=== PATIENT | male | born 1965 | race Caucasian/White ===

== ENCOUNTER 2017-10-28 16:58 | Emergency (ER) | payer OTHER ==
[~2017-10-28] VITALS: Ht 185.4 cm; Wt 187.8 kg
[2017-10-28 17:00] VITALS: BP 159/110
[2017-10-28] MEDS ORDERED: AMLO5TAB2 PO (17:18)
[2017-10-28] MEDS ORDERED: LISI40TA PO (17:18)
[2017-10-28] MEDS ORDERED: BUPR200T2 PO (17:18)
[2017-10-28] MEDS ORDERED: LEVO200T5 PO (17:18)
[2017-10-28] MEDS ORDERED: KETOROLAC 30 MG/1 ML ONE (17:28)
[2017-10-28] MEDS ORDERED: KETOROLAC 30 MG/1 ML IM ONE (17:30)
== END 2017-10-28 18:03 | disposition home or self-care (01) ==
LOC: ED 17:42
DX: M10.072 Idiopathic gout, left ankle and foot (principal); M13.172 Monoarthritis, not elsewhere classified, left ankle and foot; I10 Essential (primary) hypertension; E03.9 Hypothyroidism, unspecified; Z85.850 Personal history of malignant neoplasm of thyroid
CPT/HCPCS: 73610; 96372; 99284; J1885

== ENCOUNTER 2017-12-21 12:41 | Emergency (ER) | payer OTHER ==
[~2017-12-21] VITALS: Ht 185.4 cm; Wt 179.0 kg
[~2017-12-21 12:41] MED LIST: AMLO5TAB2 PO; BUPR200T2 PO; LEVO200T5 PO; LISI40TA PO
[2017-12-21 12:53] VITALS: BP 134/90
[2017-12-21] MEDS ORDERED: KETOROLAC 30 MG/1 ML IM ONE (14:00)
[2017-12-21] MEDS ORDERED: KETOROLAC 30 MG/1 ML ONE (14:13)
== END 2017-12-21 15:22 | disposition home or self-care (01) ==
LOC: ED 15:14
DX: M13.172 Monoarthritis, not elsewhere classified, left ankle and foot (principal); M10.9 Gout, unspecified; R26.2 Difficulty in walking, not elsewhere classified; I10 Essential (primary) hypertension; E03.9 Hypothyroidism, unspecified; G62.9 Polyneuropathy, unspecified; Z85.850 Personal history of malignant neoplasm of thyroid
CPT/HCPCS: 96372; 99283; J1885

== ENCOUNTER 2018-11-27 15:19 | Emergency (ER) | payer MEDICAID, OTHER ==
[~2018-11-27] VITALS: Ht 185.4 cm; Wt 172.0 kg
[~2018-11-27 15:19] MED LIST changes: +AMLO-150 PO; -AMLO5TAB2 PO
[2018-11-27 15:28] VITALS: BP 129/93
[2018-11-27 15:55] LABS: BASOPHILS # (AUTO) 0.02 x10^3/uL (0-0.1); BASOPHILS % (AUTO) 0 % (0-1); EOSINOPHILS # (AUTO) 0.11 x10^3/uL (0-0.4); EOSINOPHILS % (AUTO) 2 % (1-7); LYMPHOCYTES # (AUTO) 1.37 x10^3/uL (1-3.4); LYMPHOCYTES % (AUTO) 19 % (22-44); MD NO; MEAN CORPUSCULAR HEMOGLOBIN 35.7 pg (27.5-34.5); MEAN CORPUSCULAR HGB CONC 33.5 g/dL (33.2-36.2); MEAN CORPUSCULAR VOLUME 106.5 fL (81-97); MEAN PLATELET VOLUME 7.2 fL (7.4-10.4); MONOCYTES # (AUTO) 0.32 x10^3/uL (0.2-0.8); MONOCYTES % (AUTO) 5 % (2-9); NEUTROPHILS # (AUTO) 5.26 x10^3/uL (1.8-6.8); NEUTROPHILS % (AUTO) 74 % (42-75); PLATELET COUNT 166 x10^3/uL (130-400); RED BLOOD COUNT 4.58 x10^6/uL (4.38-5.82); RED CELL DISTRIBUTION WIDTH 13.9 % (9.4-14.8)
[2018-11-27 16:05] LABS: ALBUMIN 4.2 g/dL (3.4-5.0); ANION GAP 6 mmol/L (5-15); CALCIUM 8.8 mg/dL (8.5-10.1); CHLORIDE 110 mmol/L (98-107)
[2018-11-27 16:11] LABS: ALANINE AMINOTRANSFERASE 38 U/L (12-78); ALKALINE PHOSPHATASE 91 U/L (45-117); BILIRUBIN,TOTAL 4.4 mg/dL (0.2-1.0); CREATININE 1.09 mg/dL (0.7-1.3); TOTAL PROTEIN 8.1 g/dL (6.4-8.2)
--- NOTE | 2018-11-27 16:39 | NUR ---
FROM LOBBY TO ROOM AT THIS TIME
--- NOTE | 2018-11-27 16:54 | NUR ---
THIS IS A 53 Y/O MALE THAT ARRIVES FROM HOME WITH GI DISTRESS. PT REPORTS N/V/D SINCE TRAVEL TO [place]. PT REPORTS THAT HE CANNOT STAY HYDRATED AT THIS TIME. PT ALSO REPROTS HE HAS NOT SEEKED TREATMENT SINCE HE GOT INSURANCE TODAY. PT IS TENDER TO ABD PALPATION. PT DEINES TRUAMA AT THIS TIME. PT CONNECTED TO MONITORS AND CALL LIGHT IN REACH. AWATING FURTHER ORDERS. VSS
--- NOTE | 2018-11-27 17:09 | NUR ---
EKG COMPLETED, UA SENT TO LAB
[2018-11-27 17:17] LABS: MICROSCOPIC NOT IND
[2018-11-27 17:21] LABS: CULTURE INDICATED? NO
--- NOTE | 2018-11-27 17:43 | NUR ---
Patient/Caregiver given discharge instructions and they have confirmed that they understand the instructions. Patient ambulatory with steady gait.
== END 2018-11-27 18:20 | disposition home or self-care (01) ==
LOC: ED 18:00
DX: K43.9 Ventral hernia without obstruction or gangrene (principal); E80.7 Disorder of bilirubin metabolism, unspecified; F32.9 Major depressive disorder, single episode, unspecified; E03.9 Hypothyroidism, unspecified; I10 Essential (primary) hypertension; M19.90 Unspecified osteoarthritis, unspecified site; G89.29 Other chronic pain
CPT/HCPCS: 36415; 71046; 80053; 81003; 83690; 83880; 84443; 85025; 93005; 99284

== ENCOUNTER 2018-12-27 04:15 | Emergency (ER) | payer MEDICAID ==
[~2018-12-27] VITALS: Ht 185.4 cm; Wt 166.0 kg
[2018-12-27 04:19] VITALS: BP 153/95
--- NOTE | 2018-12-27 04:30 | NUR ---
PT AMBULATES FROM TRIAGE TO ROOM WITH STEADY GAIT.
[2018-12-27] MEDS ORDERED: KETOROLAC 30 MG/1 ML IM ONE (05:00)
[2018-12-27] MEDS ORDERED: KETOROLAC 60 MG/2 ML ONE (05:05)
--- NOTE | 2018-12-27 05:09 | NUR ---
PT MEDICATED PER MAR.
[2018-12-27 05:44] LABS: BASOPHILS # (AUTO) 0.04 x10^3/uL (0-0.1); BASOPHILS % (AUTO) 1 % (0-1); EOSINOPHILS # (AUTO) 0.17 x10^3/uL (0-0.4); EOSINOPHILS % (AUTO) 2 % (1-7); LYMPHOCYTES # (AUTO) 1.31 x10^3/uL (1-3.4); LYMPHOCYTES % (AUTO) 18 % (22-44); MD NO; MEAN CORPUSCULAR HEMOGLOBIN 36.7 pg (27.5-34.5); MEAN CORPUSCULAR HGB CONC 34.9 g/dL (33.2-36.2); MEAN CORPUSCULAR VOLUME 105.2 fL (81-97); MEAN PLATELET VOLUME 7.4 fL (7.4-10.4); MONOCYTES # (AUTO) 0.52 x10^3/uL (0.2-0.8); MONOCYTES % (AUTO) 7 % (2-9); NEUTROPHILS # (AUTO) 5.22 x10^3/uL (1.8-6.8); NEUTROPHILS % (AUTO) 72 % (42-75); PLATELET COUNT 135 x10^3/uL (130-400); RED BLOOD COUNT 4.17 x10^6/uL (4.38-5.82); RED CELL DISTRIBUTION WIDTH 13.6 % (9.4-14.8)
[2018-12-27 05:47] LABS: ALBUMIN 3.8 g/dL (3.4-5.0); ANION GAP 8 mmol/L (5-15); CALCIUM 8.8 mg/dL (8.5-10.1); CHLORIDE 109 mmol/L (98-107); CREATININE 1.08 mg/dL (0.7-1.3)
[2018-12-27] MEDS ORDERED: OXYcodone/APAP 5/325MG TABLET PO ONE (06:00)
[2018-12-27] MEDS ORDERED: OXYcodone/APAP 5/325MG TABLET ONE (06:12)
--- NOTE | 2018-12-27 06:15 | NUR ---
PT MEDICATED PER AUG. PT PROVIDED CRUTCHES AND ABLE TO DEMONSTRATE PROPER USE PRIOR TO D/C. PT CRUTCHES ADJUSTED FOR PT HEIGHT.
== END 2018-12-27 06:40 | disposition home or self-care (01) ==
LOC: ED 05:40
DX: M10.071 Idiopathic gout, right ankle and foot (principal); M19.90 Unspecified osteoarthritis, unspecified site; F32.9 Major depressive disorder, single episode, unspecified; I10 Essential (primary) hypertension; E03.9 Hypothyroidism, unspecified; Z85.850 Personal history of malignant neoplasm of thyroid
CPT/HCPCS: 36415; 73610; 80048; 82040; 84550; 85025; 96372; 99284; J1885

== ENCOUNTER 2019-02-04 13:24 | Emergency (ER) | payer MEDICAID ==
[~2019-02-04] VITALS: Ht 185.4 cm; Wt 172.0 kg
[2019-02-04 13:30] VITALS: BP 140/83
== END 2019-02-04 13:59 | disposition home or self-care (01) ==
LOC: ED 13:30
DX: M10.071 Idiopathic gout, right ankle and foot (principal); Z76.0 Encounter for issue of repeat prescription; E03.9 Hypothyroidism, unspecified; I10 Essential (primary) hypertension; Z85.850 Personal history of malignant neoplasm of thyroid
CPT/HCPCS: 99283

== ENCOUNTER 2019-05-21 20:49 | Emergency (ER) | payer MEDICAID ==
[~2019-05-21] VITALS: Ht 185.4 cm; Wt 179.5 kg
[2019-05-21 21:50] LABS: BASOPHILS # (AUTO) 0.03 x10^3/uL (0-0.1); BASOPHILS % (AUTO) 0 % (0-1); EOSINOPHILS # (AUTO) 0.15 x10^3/uL (0-0.4); EOSINOPHILS % (AUTO) 2 % (1-7); LYMPHOCYTES # (AUTO) 1.77 x10^3/uL (1-3.4); LYMPHOCYTES % (AUTO) 23 % (22-44); MD NO; MEAN CORPUSCULAR HGB CONC 33.9 g/dL (33.2-36.2); MEAN CORPUSCULAR VOLUME 106.2 fL (81-97); MEAN PLATELET VOLUME 7.1 fL (7.4-10.4); MONOCYTES # (AUTO) 0.43 x10^3/uL (0.2-0.8); MONOCYTES % (AUTO) 6 % (2-9); NEUTROPHILS # (AUTO) 5.44 x10^3/uL (1.8-6.8); NEUTROPHILS % (AUTO) 70 % (42-75); PLATELET COUNT 156 x10^3/uL (130-400); RED CELL DISTRIBUTION WIDTH 14.9 % (9.4-14.8)
[2019-05-21 22:02] LABS: ALANINE AMINOTRANSFERASE 38 U/L (12-78); ANION GAP 6 mmol/L (5-15); CALCIUM 8.7 mg/dL (8.5-10.1); CHLORIDE 107 mmol/L (98-107); CREATININE 1.18 mg/dL (0.7-1.3)
[2019-05-21 22:04] LABS: ALKALINE PHOSPHATASE 97 U/L (45-117); BILIRUBIN,TOTAL 2.8 mg/dL (0.2-1.0); TOTAL PROTEIN 7.9 g/dL (6.4-8.2)
[2019-05-21 23:21] VITALS: BP 154/87
== END 2019-05-21 23:28 | disposition home or self-care (01) ==
LOC: ED 23:22
DX: F41.1 Generalized anxiety disorder (principal); R53.83 Other fatigue; F51.04 Psychophysiologic insomnia; E80.6 Other disorders of bilirubin metabolism; I10 Essential (primary) hypertension; E03.9 Hypothyroidism, unspecified
CPT/HCPCS: 36415; 80053; 85025; 93005; 99284

== ENCOUNTER 2019-07-31 11:28 | Emergency (ER) | payer MEDICAID ==
[~2019-07-31] VITALS: Ht 185.4 cm; Wt 175.0 kg
[2019-07-31 11:38] VITALS: BP 145/93
[2019-07-31] MEDS ORDERED: KETOROLAC 30 MG/1 ML ONE (12:24)
--- NOTE | 2019-07-31 12:29 | NUR ---
medicated per emar
--- NOTE | 2019-07-31 12:53 | NUR ---
pain improved to 3/10 Able to ambulate with reduced pain Re-educated on dietary reccomendations for gout
[2019-07-31] MEDS ORDERED: KETOROLAC 30 MG/1 ML IM ONE (13:00)
== END 2019-07-31 12:55 | disposition home or self-care (01) ==
LOC: ED 12:20
DX: M10.071 Idiopathic gout, right ankle and foot (principal); I10 Essential (primary) hypertension; E03.9 Hypothyroidism, unspecified
CPT/HCPCS: 96372; 99283; J1885

== ENCOUNTER 2019-09-17 13:11 | Emergency (ER) | payer MEDICAID, OTHER ==
[~2019-09-17] VITALS: Ht 185.4 cm; Wt 176.7 kg
[2019-09-17 13:15] VITALS: BP 159/94
[2019-09-17] MEDS ORDERED: KETOROLAC 30 MG/1 ML IM ONE (13:30)
[2019-09-17] MEDS ORDERED: KETOROLAC 30 MG/1 ML ONE (13:48)
== END 2019-09-17 14:13 | disposition home or self-care (01) ==
LOC: ED 13:59
DX: M10.071 Idiopathic gout, right ankle and foot (principal); I10 Essential (primary) hypertension; G89.29 Other chronic pain; E03.9 Hypothyroidism, unspecified; Z85.850 Personal history of malignant neoplasm of thyroid
CPT/HCPCS: 99283; J1885

== ENCOUNTER 2019-09-25 11:24 | Emergency (ER) | payer OTHER ==
[~2019-09-25] VITALS: Ht 185.4 cm; Wt 172.3 kg
[2019-09-25 11:27] VITALS: BP 142/103
[2019-09-25] MEDS ORDERED: KETOROLAC 30 MG/1 ML IM ONE (12:00)
[2019-09-25] MEDS ORDERED: CEPHALEXIN 500 MG CAPSULE PO ONE (12:00)
[2019-09-25] MEDS ORDERED: CEPHALEXIN 500 MG CAPSULE ONE (12:10)
[2019-09-25] MEDS ORDERED: KETOROLAC 30 MG/1 ML ONE (12:10)
== END 2019-09-25 12:54 | disposition home or self-care (01) ==
LOC: ED 11:40
DX: L03.031 Cellulitis of right toe (principal); I10 Essential (primary) hypertension; M10.9 Gout, unspecified; M19.90 Unspecified osteoarthritis, unspecified site
CPT/HCPCS: 96374; 99283; J1885

== ENCOUNTER 2019-10-17 10:10 | Emergency (ER) | payer OTHER ==
[~2019-10-17] VITALS: Ht 185.4 cm; Wt 175.0 kg
[2019-10-17 10:17] VITALS: BP 158/98
--- NOTE | 2019-10-17 10:30 | NUR ---
PT STATES HE HAS HAD A GOUT FLAIR UP FOR APPROX 1 MONTH. "IM HERE FOR A TORADOL SHOT" PT STATES HE IS NOT CURRENLTY TAKING MEDICATIONS FOR GOUT AT THIS TIME IT TYPICALLY FLAIRS UP ONLY ABOUT EVERY 6 MONTHS
[2019-10-17] MEDS ORDERED: KETOROLAC 30 MG/1 ML IM ONE (11:00)
[2019-10-17] MEDS ORDERED: KETOROLAC 30 MG/1 ML ONE (11:00)
== END 2019-10-17 11:35 | disposition home or self-care (01) ==
LOC: ED 10:49
DX: L03.115 Cellulitis of right lower limb (principal); M25.571 Pain in right ankle and joints of right foot; M13.172 Monoarthritis, not elsewhere classified, left ankle and foot; M10.9 Gout, unspecified; E03.9 Hypothyroidism, unspecified; I10 Essential (primary) hypertension; G89.29 Other chronic pain; Z85.850 Personal history of malignant neoplasm of thyroid
CPT/HCPCS: 96372; 99283; J1885

== ENCOUNTER 2019-11-03 12:28 | Emergency (ER) | payer OTHER ==
[~2019-11-03] VITALS: Ht 185.4 cm; Wt 177.1 kg
[2019-11-03 12:34] VITALS: BP 139/83
[2019-11-03] MEDS ORDERED: BUPR2TAB SL (13:10)
[2019-11-03] MEDS ORDERED: BISA-49 PO (13:11)
--- NOTE | 2019-11-03 13:12 | NUR ---
PT BIB P/V FOR MAINLY NEW REDNESS, SWELLING, PAIN TO LEFT FOOT AND HAD FINISHED A COURSE OF CLINDAMYCIN FOR CELLULITIS TO RIGHT FOOT 3 DAYS AGO. PT REPORTS ALSO PASSING BLOOD TINGED PHLEGM FROM THROAT BUT DENIES COUGHING IT UP. PT ON HEART MONITOR. WAITING FOR ORDERS.
[2019-11-03 13:52] LABS: BASOPHILS # (AUTO) 0.03 x10^3/uL (0-0.1); BASOPHILS % (AUTO) 0 % (0-1); EOSINOPHILS # (AUTO) 0.12 x10^3/uL (0-0.4); EOSINOPHILS % (AUTO) 1 % (1-7); LYMPHOCYTES # (AUTO) 1.41 x10^3/uL (1-3.4); LYMPHOCYTES % (AUTO) 14 % (22-44); MD NO; MEAN CORPUSCULAR HEMOGLOBIN 34.9 pg (27.5-34.5); MEAN CORPUSCULAR HGB CONC 34.4 g/dL (33.2-36.2); MEAN CORPUSCULAR VOLUME 101.4 fL (81-97); MEAN PLATELET VOLUME 7.2 fL (7.4-10.4); MONOCYTES # (AUTO) 0.68 x10^3/uL (0.2-0.8); MONOCYTES % (AUTO) 7 % (2-9); NEUTROPHILS # (AUTO) 7.65 x10^3/uL (1.8-6.8); NEUTROPHILS % (AUTO) 77 % (42-75); PLATELET COUNT 159 x10^3/uL (130-400); RED BLOOD COUNT 4.63 x10^6/uL (4.38-5.82); RED CELL DISTRIBUTION WIDTH 14.7 % (9.4-14.8)
[2019-11-03 14:02] LABS: ALANINE AMINOTRANSFERASE 26 U/L (12-78); ALBUMIN 3.8 g/dL (3.4-5.0); ANION GAP 7 mmol/L (5-15); CALCIUM 8.7 mg/dL (8.5-10.1); CHLORIDE 107 mmol/L (98-107); CREATININE 0.92 mg/dL (0.7-1.3)
[2019-11-03 14:04] LABS: ALKALINE PHOSPHATASE 109 U/L (45-117); BILIRUBIN,TOTAL 3.5 mg/dL (0.2-1.0); TOTAL PROTEIN 8.1 g/dL (6.4-8.2)
[2019-11-03] MEDS ORDERED: COLCHICINE 0.6 MG CAPSULE ONE ×2 (14:42→14:50)
[2019-11-03] MEDS ORDERED: KETOROLAC 30 MG/1 ML ONE (14:50)
--- NOTE | 2019-11-03 14:59 | NUR ---
MEDICATED PER ORDERS. Patient/Caregiver given discharge instructions and they have confirmed that they understand the instructions. Patient wheeled to dc area.
[2019-11-03] MEDS ORDERED: COLCHICINE 0.6 MG CAPSULE PO ONE (15:00)
[2019-11-03] MEDS ORDERED: COLCHICINE 0.6 MG CAPSULE PO SCH (15:00)
[2019-11-03] MEDS ORDERED: KETOROLAC 30 MG/1 ML IM ONE (15:00)
== END 2019-11-03 15:01 | disposition home or self-care (01) ==
LOC: ED 13:26
DX: M10.072 Idiopathic gout, left ankle and foot (principal); M10.071 Idiopathic gout, right ankle and foot; R94.5 Abnormal results of liver function studies; M79.662 Pain in left lower leg; M79.661 Pain in right lower leg; I10 Essential (primary) hypertension; E03.9 Hypothyroidism, unspecified
CPT/HCPCS: 36415; 80053; 84550; 85025; 93970; 96372; 99284; J1885

== ENCOUNTER 2019-11-05 22:53 | Emergency (ER) | payer OTHER ==
[~2019-11-05] VITALS: Ht 185.4 cm; Wt 171.0 kg
[~2019-11-05 22:53] MED LIST changes: +BISA-49 PO; +BUPR2TAB SL
[2019-11-05 23:57] LABS: BASOPHILS # (AUTO) 0.03 x10^3/uL (0-0.1); BASOPHILS % (AUTO) 0 % (0-1); EOSINOPHILS # (AUTO) 0.15 x10^3/uL (0-0.4); EOSINOPHILS % (AUTO) 2 % (1-7); HCT (SEDRATE) 45.3 % (39.2-51.8); LYMPHOCYTES # (AUTO) 1.51 x10^3/uL (1-3.4); LYMPHOCYTES % (AUTO) 15 % (22-44); MD NO; MEAN CORPUSCULAR HEMOGLOBIN 34.7 pg (27.5-34.5); MEAN CORPUSCULAR HGB CONC 34.1 g/dL (33.2-36.2); MEAN CORPUSCULAR VOLUME 101.5 fL (81-97); MEAN PLATELET VOLUME 7.1 fL (7.4-10.4); MONOCYTES % (AUTO) 4 % (2-9); NEUTROPHILS # (AUTO) 8.25 x10^3/uL (1.8-6.8); NEUTROPHILS % (AUTO) 80 % (42-75); PLATELET COUNT 154 x10^3/uL (130-400); RED BLOOD COUNT 4.47 x10^6/uL (4.38-5.82); RED CELL DISTRIBUTION WIDTH 14.6 % (9.4-14.8)
[2019-11-05] MEDS ORDERED: KETOROLAC 30 MG/1 ML ONE (23:59)
[2019-11-06] MEDS ORDERED: KETOROLAC 30 MG/1 ML IM ONE
[2019-11-06 00:09] LABS: ANION GAP 7 mmol/L (5-15); CALCIUM 8.7 mg/dL (8.5-10.1); CHLORIDE 105 mmol/L (98-107); CREATININE 1.14 mg/dL (0.7-1.3)
[2019-11-06] MEDS ORDERED: HYDROcodone/APAP 5/325 TABLET PO ONE (01:30)
[2019-11-06] MEDS ORDERED: CLINDAMYCIN 300 MG CAPSULE PO ONE (01:30)
[2019-11-06] MEDS ORDERED: CLINDAMYCIN 300 MG CAPSULE ONE (01:48)
[2019-11-06] MEDS ORDERED: HYDROcodone/APAP 5/325 TABLET ONE (01:48)
[2019-11-06 02:07] VITALS: BP 136/88
== END 2019-11-06 02:09 | disposition home or self-care (01) ==
LOC: ED 11-06 01:56
DX: L03.116 Cellulitis of left lower limb (principal); M10.9 Gout, unspecified
CPT/HCPCS: 36415; 73630; 80048; 85025; 85651; 86140; 96372; 99284; J1885

== ENCOUNTER 2020-01-03 10:52 | Emergency (ER) | payer OTHER ==
[~2020-01-03] VITALS: Ht 185.4 cm; Wt 183.3 kg
[2020-01-03 10:53] VITALS: BP 169/107
[2020-01-03] MEDS ORDERED: SODIUM CHLORIDE FLUSH 10ML SYR IVF ONE (11:30)
[2020-01-03 11:34] LABS: BASOPHILS # (AUTO) 0.01 x10^3/uL (0-0.1); BASOPHILS % (AUTO) 0 % (0-1); EOSINOPHILS # (AUTO) 0.33 x10^3/uL (0-0.4); EOSINOPHILS % (AUTO) 5 % (1-7); LYMPHOCYTES # (AUTO) 0.96 x10^3/uL (1-3.4); LYMPHOCYTES % (AUTO) 16 % (22-44); MD NO; MEAN CORPUSCULAR HEMOGLOBIN 34.2 pg (27.5-34.5); MEAN CORPUSCULAR HGB CONC 33.5 g/dL (33.2-36.2); MEAN CORPUSCULAR VOLUME 101.9 fL (81-97); MEAN PLATELET VOLUME 6.4 fL (7.4-10.4); MONOCYTES # (AUTO) 0.26 x10^3/uL (0.2-0.8); MONOCYTES % (AUTO) 4 % (2-9); NEUTROPHILS # (AUTO) 4.66 x10^3/uL (1.8-6.8); NEUTROPHILS % (AUTO) 75 % (42-75); PLATELET COUNT 157 x10^3/uL (130-400); RED BLOOD COUNT 4.72 x10^6/uL (4.38-5.82); RED CELL DISTRIBUTION WIDTH 16.1 % (9.4-14.8)
[2020-01-03] MEDS ORDERED: AMLO10TA8 PO (11:38)
[2020-01-03] MEDS ORDERED: BUPR300T49 PO (11:40)
[2020-01-03] MEDS ORDERED: SERT100T PO (11:41)
[2020-01-03 11:47] LABS: ALANINE AMINOTRANSFERASE 36 U/L (12-78); ALBUMIN 3.8 g/dL (3.4-5.0); ANION GAP 4 mmol/L (5-15); CALCIUM 8.9 mg/dL (8.5-10.1); CHLORIDE 109 mmol/L (98-107); CREATININE 0.96 mg/dL (0.7-1.3)
[2020-01-03 11:51] LABS: ALKALINE PHOSPHATASE 96 U/L (45-117); TOTAL PROTEIN 7.8 g/dL (6.4-8.2); TROPONIN I < 0.015 ng/mL (0.000-0.045)
[2020-01-03 12:30] LABS: PROTHROMBIN TIME 10.6 Seconds (9.6-11.5)
[2020-01-03] MEDS ORDERED: OMNIPAQUE 350 MG/ML, 100ML BOTTLE ONE (12:42)
--- NOTE | 2020-01-03 14:05 | NUR ---
Mary rn: called into room by pt. pt states he is having trouble breathing. room air of 86%. pt placed on o2 and md made aware.
--- NOTE | 2020-01-03 14:08 | NUR ---
case management notified in regards to possibilities of sending pt home with o2
--- NOTE | 2020-01-03 14:18 | NUR ---
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
--- NOTE | 2020-01-03 17:59 | NUR ---
Patient given discharge instructions and they have confirmed that they understand the instructions. Patient ambulatory with steady gait.
== END 2020-01-03 18:00 | disposition home or self-care (01) ==
LOC: ED 11:13
DX: J18.9 Pneumonia, unspecified organism (principal); R06.00 Dyspnea, unspecified; R04.2 Hemoptysis; R09.02 Hypoxemia; R94.31 Abnormal electrocardiogram [ECG] [EKG]; I10 Essential (primary) hypertension
CPT/HCPCS: 36415; 71275; 80053; 83880; 84484; 85025; 85610; 85730; 93005; 99285; Q9967

== ENCOUNTER 2020-01-14 14:48 | Emergency (ER) | payer OTHER ==
[~2020-01-14] VITALS: Ht 185.4 cm; Wt 178.0 kg
[~2020-01-14 14:48] MED LIST changes: +AMLO10TA8 PO; +BUPR300T49 PO; +SERT100T PO
--- NOTE | 2020-01-14 15:30 | NUR ---
THIS IS A 54 YEAR OLD WHO C/O OF "I AM HAVING A HARD TIME BREATHING. I HAD PNEUMONIA SUPPOSEDLY PROBABLE COVID" DENIES BEING SWABBED. THEY TOLD ME TO FOLLOW UP WITH MY PROVIDER AND I CAN'T GET IN. 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
--- NOTE | 2020-01-14 16:32 | NUR ---
EXPLAINED PLAN OF CARE WITH PATIENT, PT REQUESTED WATER AND DIET SODA. PROVIDED BOTH. VERBALIZED NO OTHER NEEDS AT THIS TIME.
[2020-01-14 16:36] LABS: BASOPHILS # (AUTO) 0.02 x10^3/uL (0-0.1); BASOPHILS % (AUTO) 0 % (0-1); EOSINOPHILS # (AUTO) 0.26 x10^3/uL (0-0.4); EOSINOPHILS % (AUTO) 4 % (1-7); LYMPHOCYTES # (AUTO) 1.03 x10^3/uL (1-3.4); LYMPHOCYTES % (AUTO) 17 % (22-44); MD NO; MEAN CORPUSCULAR HEMOGLOBIN 33.7 pg (27.5-34.5); MEAN CORPUSCULAR HGB CONC 32.9 g/dL (33.2-36.2); MEAN CORPUSCULAR VOLUME 102.3 fL (81-97); MEAN PLATELET VOLUME 7.4 fL (7.4-10.4); MONOCYTES # (AUTO) 0.38 x10^3/uL (0.2-0.8); MONOCYTES % (AUTO) 7 % (2-9); NEUTROPHILS # (AUTO) 4.26 x10^3/uL (1.8-6.8); NEUTROPHILS % (AUTO) 72 % (42-75); PLATELET COUNT 144 x10^3/uL (130-400); RED BLOOD COUNT 4.77 x10^6/uL (4.38-5.82); RED CELL DISTRIBUTION WIDTH 16.1 % (9.4-14.8)
[2020-01-14 16:40] LABS: ALBUMIN 3.8 g/dL (3.4-5.0); ANION GAP 6 mmol/L (5-15); CALCIUM 8.7 mg/dL (8.5-10.1); CHLORIDE 113 mmol/L (98-107); CREATININE 0.99 mg/dL (0.7-1.3)
[2020-01-14 16:44] LABS: TROPONIN I < 0.015 ng/mL (0.000-0.045)
--- NOTE | 2020-01-14 17:38 | NUR ---
PT RESTING, VERBALIZED NO NEEDS AT THIS TIME
[2020-01-14] MEDS ORDERED: AZITHROMYCIN 500 MG TABLET PO ONE (18:30)
[2020-01-14] MEDS ORDERED: CEFTRIAXONE PMX 1GM/50ML 50 ML IVPB ONE (18:30)
--- NOTE | 2020-01-14 18:50 | NUR ---
Received report from Kirt Araujo RN.
--- NOTE | 2020-01-14 18:54 | NUR ---
REPORT TO QUANG DURON, PLAN OF CARE DISCUSSED.
[2020-01-14] MEDS ORDERED: CEFTRIAXONE PMX 1GM/50ML 50 ML ONE (19:51)
[2020-01-14 20:30] VITALS: BP 142/88
== END 2020-01-14 20:34 | disposition home or self-care (01) ==
LOC: ED 15:51
DX: J18.9 Pneumonia, unspecified organism (principal); R07.9 Chest pain, unspecified; R94.31 Abnormal electrocardiogram [ECG] [EKG]; I10 Essential (primary) hypertension; Z85.850 Personal history of malignant neoplasm of thyroid
CPT/HCPCS: 36415; 71045; 80048; 82040; 83605; 83880; 84484; 85025; 87040; 93005; 96365; 96366; 99285; J0696

== ENCOUNTER 2020-02-02 09:05 | Emergency (ER) | payer OTHER ==
[~2020-02-02] VITALS: Ht 185.4 cm; Wt 179.2 kg
--- NOTE | 2020-02-02 09:37 | NUR ---
PT BROUGHT BACK FROM TRIAGE WITH CHIEF COMPLAINT OF FATIGUE, STRESS, EXHAUSTED, NOT ABLE TO SLEEP, INTERMITTENT SOB. TESTED FOR COVID "A FEW WEEKS AGO" UNSURE OF RESULTS.
--- NOTE | 2020-02-02 10:18 | NUR ---
report received from task DOMI Pascual.
[2020-02-02 10:19] LABS: BASOPHILS # (AUTO) 0.01 x10^3/uL (0-0.1); BASOPHILS % (AUTO) 0 % (0-1); EOSINOPHILS # (AUTO) 0.16 x10^3/uL (0-0.4); EOSINOPHILS % (AUTO) 3 % (1-7); LYMPHOCYTES % (AUTO) 16 % (22-44); MD NO; MEAN CORPUSCULAR HEMOGLOBIN 34.8 pg (27.5-34.5); MEAN CORPUSCULAR HGB CONC 33.1 g/dL (33.2-36.2); MEAN CORPUSCULAR VOLUME 105.1 fL (81-97); MEAN PLATELET VOLUME 6.5 fL (7.4-10.4); MONOCYTES # (AUTO) 0.39 x10^3/uL (0.2-0.8); MONOCYTES % (AUTO) 6 % (2-9); NEUTROPHILS # (AUTO) 4.65 x10^3/uL (1.8-6.8); NEUTROPHILS % (AUTO) 75 % (42-75); PLATELET COUNT 138 x10^3/uL (130-400); RED BLOOD COUNT 4.97 x10^6/uL (4.38-5.82); RED CELL DISTRIBUTION WIDTH 16.6 % (9.4-14.8)
[2020-02-02] MEDS ORDERED: ASPIRIN 81 MG TABLET CHEW ONE (10:28)
[2020-02-02 10:30] LABS: ALANINE AMINOTRANSFERASE 35 U/L (12-78); ALBUMIN 3.8 g/dL (3.4-5.0); ANION GAP 6 mmol/L (5-15); CALCIUM 8.9 mg/dL (8.5-10.1); CHLORIDE 108 mmol/L (98-107)
[2020-02-02] MEDS ORDERED: ASPIRIN 81 MG TABLET CHEW PO ONE (10:30)
[2020-02-02] MEDS ORDERED: SODIUM CHLORIDE FLUSH 10ML SYR IVF ONE (10:30)
[2020-02-02 10:34] LABS: ALKALINE PHOSPHATASE 96 U/L (45-117); BILIRUBIN,TOTAL 3.1 mg/dL (0.2-1.0); TROPONIN I < 0.015 ng/mL (0.000-0.045)
--- NOTE | 2020-02-02 11:17 | NUR ---
task rn: PT CONCERNED ABOUT BP. PT STATES "I JUST GOT OVER WITH COVID PNA. I WAS DIAGNOSED ABOUT THREE WEEK AGO."
[2020-02-02 11:19] VITALS: BP 159/98
--- NOTE | 2020-02-02 11:20 | NUR ---
TASK RN: PT STATED HE DIDN'T TAKE HIS LISONIPRIL TODAY. PT WAS IN THE 180-200/100S. PT ANXIOUS AND SITTING ON GURNEY. PT BP IS 158/98. PT STATES HE'S BEEN STRESSED OUT OVER THE LAST MONTH. NADN. PT NOW RESTING ON GURNEY. NO OTHER NEEDS REQUESTED AT THIS TIME.
--- NOTE | 2020-02-02 12:03 | NUR ---
Patient/Caregiver given discharge instructions and they have confirmed that they understand the instructions. Patient ambulatory with steady gait. PT LEFT WITH ALL PERSONAL BELONGINGS.
== END 2020-02-02 12:27 | disposition home or self-care (01) ==
LOC: ED 09:50
DX: R07.89 Other chest pain (principal); R53.83 Other fatigue; R63.0 Anorexia; I10 Essential (primary) hypertension; E03.9 Hypothyroidism, unspecified; Z85.850 Personal history of malignant neoplasm of thyroid
CPT/HCPCS: 36415; 71045; 80053; 83880; 84484; 85025; 93005; 99285

== ENCOUNTER 2020-10-13 14:51 | Emergency (ER) | payer OTHER ==
[~2020-10-13] VITALS: Ht 185.4 cm; Wt 179.4 kg
[~2020-10-13 14:51] MED LIST changes: +AMLO-211 PO; -AMLO10TA8 PO; -LISI40TA PO; +LISI40TA9 PO
--- NOTE | 2020-10-13 15:01 | NUR ---
Pt placed on 2L NC in triage.
--- NOTE | 2020-10-13 15:17 | NUR ---
FIRST CONTACT WITH PT. PT C/O SOB/GENERALIZED WEAKNESS. PT STATED "I HAD COVID IN 12/2019. I NEED TO BE TESTED TO GO BACK TO WORK" PT'S AOX4. RESPS EVEN AND UNLABORED. ALL MONITORS IN PLACE. CALL LIGHT WITHIN REACH.
--- NOTE | 2020-10-13 15:44 | NUR ---
XRAY IN ROOM AT THIS TIME.
[2020-10-13 15:53] LABS: BASOPHILS % (AUTO) 1 % (0-1); EOSINOPHILS % (AUTO) 9 % (1-7); LYMPHOCYTES % (AUTO) 16 % (22-44); MEAN CORPUSCULAR HEMOGLOBIN 35.8 pg (27.5-34.5); MEAN CORPUSCULAR HGB CONC 34.5 g/dL (33.2-36.2); MEAN PLATELET VOLUME 6.9 fL (7.4-10.4); MONOCYTES % (AUTO) 6 % (2-9); NEUTROPHILS % (AUTO) 69 % (42-75); PLATELET COUNT 142 x10^3/uL (130-400); RED BLOOD COUNT 4.71 x10^6/uL (4.38-5.82); RED CELL DISTRIBUTION WIDTH 15.3 % (9.4-14.8)
[2020-10-13] MEDS ORDERED: ALBUTEROL/IPRATROPIUM 2.5MG/0.5MG, 3 ML NPPB ONE (16:00)
[2020-10-13 16:01] LABS: MD NO
[2020-10-13 16:05] LABS: ALANINE AMINOTRANSFERASE 45 U/L (12-78); ALBUMIN 3.8 g/dL (3.4-5.0); ANION GAP 6 mmol/L (5-15); CALCIUM 8.7 mg/dL (8.5-10.1); CHLORIDE 103 mmol/L (98-107); CREATININE 1.05 mg/dL (0.7-1.3)
[2020-10-13 16:09] LABS: ALKALINE PHOSPHATASE 101 U/L (45-117); BILIRUBIN,TOTAL 2.4 mg/dL (0.2-1.0); TOTAL PROTEIN 7.8 g/dL (6.4-8.2); TROPONIN I < 0.015 ng/mL (0.000-0.045)
--- NOTE | 2020-10-13 16:22 | NUR ---
RT PAGED AT THIS TIME.
[2020-10-13] MEDS ORDERED: ALBUTEROL/IPRATROPIUM 2.5MG/0.5MG, 3 ML ONE (16:26)
--- NOTE | 2020-10-13 16:33 | NUR ---
RT AT BEDSIDE AT THIS TIME.
--- NOTE | 2020-10-13 17:18 | NUR ---
COVID SWAB OBTAINED AND THIS RN WALKED TO LAB.
[2020-10-13 17:19] VITALS: BP 160/109
[2020-10-16] MEDS ORDERED: RIVA15TA PO (08:33)
[2020-10-16] MEDS ORDERED: RIVA20TA PO (08:33)
== END 2020-10-13 17:47 | disposition home or self-care (01) ==
LOC: ED 17:40
DX: R06.00 Dyspnea, unspecified (principal); Z20.822 Contact with and (suspected) exposure to COVID-19; R05 Cough; R53.83 Other fatigue; E66.01 Morbid (severe) obesity due to excess calories; Z72.9 Problem related to lifestyle, unspecified; R09.82 Postnasal drip; M10.9 Gout, unspecified; M19.90 Unspecified osteoarthritis, unspecified site; I10 Essential (primary) hypertension; E03.9 Hypothyroidism, unspecified; R94.31 Abnormal electrocardiogram [ECG] [EKG]; Z68.43 Body mass index [BMI] 50.0-59.9, adult
CPT/HCPCS: 36415; 71045; 80053; 83880; 84484; 85025; 93005; 94640; 99285; U0003

== ENCOUNTER 2020-12-28 20:17 | Emergency (ER) | payer OTHER ==
[~2020-12-28] VITALS: Ht 185.4 cm; Wt 180.8 kg
[~2020-12-28 20:17] MED LIST changes: +FOLI1TAB32 PO; +MULT-484 PO; +RIVA15TA PO; +RIVA20TA PO; +THIA100T67 PO
[2020-12-28 20:22] VITALS: BP 137/93
--- NOTE | 2020-12-28 21:11 | NUR ---
patient signed AMA.
== END 2020-12-28 22:06 | disposition left against medical advice (07) ==
LOC: ED 22:03
DX: K59.00 Constipation, unspecified (principal); Z53.21 Procedure and treatment not carried out due to patient leaving prior to being seen by health care provider

== ENCOUNTER 2020-12-30 03:53 | Emergency (ER) | payer OTHER ==
[~2020-12-30] VITALS: Ht 185.4 cm; Wt 181.2 kg
[2020-12-30] MEDS ORDERED: METHYLNALTREXONE 12 MG/0.6 ML SYR SQ ONE ×2 (05:30→05:44)
[2020-12-30 05:54] LABS: BASOPHILS % (AUTO) 1 % (0-1); EOSINOPHILS % (AUTO) 9 % (1-7); LYMPHOCYTES % (AUTO) 16 % (22-44); MEAN CORPUSCULAR HEMOGLOBIN 36.4 pg (27.5-34.5); MEAN CORPUSCULAR HGB CONC 35.1 g/dL (33.2-36.2); MEAN PLATELET VOLUME 6.7 fL (7.4-10.4); MONOCYTES % (AUTO) 6 % (2-9); NEUTROPHILS % (AUTO) 68 % (42-75); PLATELET COUNT 164 x10^3/uL (130-400); RED BLOOD COUNT 4.47 x10^6/uL (4.38-5.82); RED CELL DISTRIBUTION WIDTH 15.1 % (9.4-14.8)
[2020-12-30 06:03] LABS: ALBUMIN 3.8 g/dL (3.4-5.0); ANION GAP 4 mmol/L (5-15); CHLORIDE 103 mmol/L (98-107); CREATININE 1.02 mg/dL (0.7-1.3)
--- NOTE | 2020-12-30 06:31 | NUR ---
pt medicated per emar, enema admininistered. pt tolerated well. awaiting stool
--- NOTE | 2020-12-30 06:43 | NUR ---
PT SITTING ON COMMODE, PASSING SOME STOOL AT THIS TIME
--- NOTE | 2020-12-30 06:50 | NUR ---
REPORT FROM FRANCES, ASSUME CARE OF PT AT THIS TIME. PT SITTING ON BSC AT THIS TIME.
--- NOTE | 2020-12-30 07:35 | NUR ---
PT WITH LARGE BM, SOME BRIGHT RED BLEEDING FROM HEMORRHOIDS. ERP NOTIFIED, PT PLACED FOR RECHECK.
[2020-12-30 08:51] VITALS: BP 122/61
== END 2020-12-30 08:54 | disposition home or self-care (01) ==
LOC: ED 05:50
DX: K64.8 Other hemorrhoids (principal); K59.00 Constipation, unspecified; I10 Essential (primary) hypertension; Z79.01 Long term (current) use of anticoagulants; Z85.850 Personal history of malignant neoplasm of thyroid
CPT/HCPCS: 36415; 74021; 80048; 82040; 85025; 96372; 99284